=== PATIENT | female | born 1985 | race Caucasian/White ===

== ENCOUNTER 2017-05-23 07:35 | Emergency (ER) | payer OTHER, MEDICAID ==
[~2017-05-23] VITALS: Ht 177.8 cm; Wt 91.0 kg
[~2017-05-23 07:35] MED LIST: MOTRIN
[2017-05-23] MEDS ORDERED: KETOROLAC 60MG/2ML VIAL IM ONE (09:30)
[2017-05-23 10:42] VITALS: BP 112/71
== END 2017-05-23 11:05 | disposition home or self-care (01) ==
LOC: ER 07:58
DX: S20.211A Contusion of right front wall of thorax, initial encounter (principal); Z88.1 Allergy status to other antibiotic agents; W10.1XXA Fall (on)(from) sidewalk curb, initial encounter; Y93.K1 Activity, walking an animal; Y92.480 Sidewalk as the place of occurrence of the external cause; Y99.8 Other external cause status
CPT/HCPCS: 71010; 96372; 99283; J1885

== ENCOUNTER 2018-07-08 16:46 | Emergency (ER) | payer MEDICAID, OTHER | END 2018-07-08 17:53 | disposition left against medical advice (07) | LOC: ER 17:33 | DX: Z53.21 Procedure and treatment not carried out due to patient leaving prior to being seen by health care provider (principal) ==

== ENCOUNTER 2018-07-09 05:06 | Emergency (ER) | payer MEDICAID ==
[~2018-07-09] VITALS: Ht 162.6 cm; Wt 99.8 kg
[2018-07-09] MEDS ORDERED: TETANUS, DIPHTHERIA, PERTUSSIS VAC/PF 0.5ML (>7YR OLD) IM ONE (07:00)
[2018-07-09] MEDS ORDERED: BACITRACIN ZINC OINT UDPKT TOP ONE (07:00)
[2018-07-09 09:43] VITALS: BP 110/68
== END 2018-07-09 09:40 | disposition home or self-care (01) ==
LOC: ER 05:06
DX: S01.111A Laceration without foreign body of right eyelid and periocular area, initial encounter (principal); S09.8XXA Other specified injuries of head, initial encounter; F17.200 Nicotine dependence, unspecified, uncomplicated; W01.0XXA Fall on same level from slipping, tripping and stumbling without subsequent striking against object, initial encounter; Y93.89 Activity, other specified; Y92.89 Other specified places as the place of occurrence of the external cause; Y99.8 Other external cause status; Z88.1 Allergy status to other antibiotic agents
CPT/HCPCS: 12011; 70450; 70486; 81025; 90715; 99284; X7700; Z7610

== ENCOUNTER 2018-09-04 15:56 | Inpatient (IN) | payer OTHER, MEDICAID ==
[~2018-09-04] VITALS: Ht 177.8 cm; Wt 104.3 kg
[2018-09-04] MEDS ORDERED: FUROSEMIDE 40MG/4ML VIAL IVP ONE (16:45)
[2018-09-04 17:29] LABS: BASOPHILS % 0.6 % (0.0-2.0); EOSINOPHILS % 1.3 % (0.0-5.0); HEMATOCRIT. 44.4 % (36.0-48.0); HEMOGLOBIN. 14.7 g/dL (12.0-16.0); INR 1.6; LYMPHOCYTES % 51.4 % (20.0-50.0); MEAN CORPUSCULAR HEMOGLOBIN 29.8 pg (28.0-32.0); MEAN CORPUSCULAR VOLUME 90.4 fL (81.0-99.0); MONOCYTES % 6.3 % (2.0-8.0); NEUTROPHILS % 40.4 % (40.0-76.0); PLATELET 321 x1000/uL (130-400); PROTHROMBIN TIME 15.9 sec (9.1-11.1); RED BLOOD CELL COUNT 4.91 mill/uL (4.2-5.4); RED CELL DISTRIBUTION WIDTH 18.4 % (11.6-14.6)
[2018-09-04 17:32] LABS: CHLORIDE 105 mEq/L (98-107); HCG SCREEN NEGATIVE
[2018-09-04 17:40] LABS: ETHANOL BLOOD 105 mg/dL
[2018-09-04] MEDS ORDERED: MORPHINE SULFATE 4 MG/ML CPJ (NOT FOR IM USE) IV STA (18:11)
[2018-09-04] MEDS ORDERED: ONDANSETRON HCL 4MG/2ML INJ IV STA (18:11)
[2018-09-04 18:37] LABS: CLARITY URINE CLEAR (CLEAR); COLOR URINE YELLOW (YELLOW); KETONES URINE NEGATIVE (NEGATIVE); LEUKOCYTE ESTERASE URINE 2+ (NEGATIVE); NITRITE URINE NEGATIVE (NEGATIVE); OCCULT BLOOD URINE NEGATIVE (NEGATIVE); PH URINE 5.5 (4.5-8.0); PROTEIN URINE NEGATIVE (NEGATIVE); SPECIFIC GRAVITY URINE 1.008 (1.005-1.030)
[2018-09-04] MEDS ORDERED: CEFTRIAXONE 1 G PREMIX 50 ML IV ONE (20:15)
[2018-09-04 23:00] VITALS: BP 115/54
[2018-09-04] MEDS ORDERED: LORAZEPAM 2MG/ML CPJ IV PRN (23:45)
[2018-09-04] MEDS ORDERED: ONDANSETRON HCL 4MG/2ML INJ IV PRN (23:45)
[2018-09-04] MEDS ORDERED: POTASSIUM CHLORIDE 20MEQ TABLET SR PO NR (23:59)
[2018-09-05] VITALS: BP 115/54
[2018-09-05] MEDS ORDERED: FLUO40CA8 PO (00:53)
[2018-09-05 04:00] VITALS: BP 110/63
[2018-09-05] MEDS: PANTOPRAZOLE 40MG DR TABLET PO SCH (06:23)
[2018-09-05 07:32] LABS: BASOPHILS % 0.8 % (0.0-2.0); EOSINOPHILS % 1.1 % (0.0-5.0); HEMATOCRIT. 35.8 % (36.0-48.0); LYMPHOCYTES % 43.6 % (20.0-50.0); MEAN CORPUSCULAR HEMOGLOBIN 30.2 pg (28.0-32.0); MEAN CORPUSCULAR VOLUME 89.9 fL (81.0-99.0); MONOCYTES % 8.8 % (2.0-8.0); NEUTROPHILS % 45.7 % (40.0-76.0); PLATELET 217 x1000/uL (130-400); RED BLOOD CELL COUNT 3.98 mill/uL (4.2-5.4); RED CELL DISTRIBUTION WIDTH 18.1 % (11.6-14.6)
[2018-09-05 08:00] VITALS: BP 107/70
[2018-09-05] MEDS: FUROSEMIDE 40MG TABLET PO SCH (08:39)
[2018-09-05] MEDS: FLUOXETINE HCL 20MG CAPSULE PO SCH (08:39)
[2018-09-05] MEDS: THIAMINE HCL 100MG TABLET PO SCH (08:39)
[2018-09-05] MEDS: FOLIC ACID 1MG TABLET PO SCH (08:39)
[2018-09-05] MEDS: MULTIVITAMINS,THER W-MINERALS TABLET PO SCH (08:40)
[2018-09-05] MEDS: CHLORDIAZEPOXIDE 25MG CAPSULE PO SCH ×3 (08:47→21:30)
[2018-09-05] MEDS: SPIRONOLACTONE 50MG TABLET PO SCH (08:48)
[2018-09-05 08:54] LABS: CHLORIDE 103 mEq/L (98-107)
[2018-09-05] MEDS ORDERED: LIDOCAINE HCL 1% 20ML VIAL (Pyxis) INJ ONE (10:46)
[2018-09-05] MEDS ORDERED: SODIUM BICARBONATE 4% (2.4MEQ) 5ML VIAL IV ONE (10:46)
[2018-09-05 12:00] VITALS: BP 109/63
[2018-09-05] MEDS ORDERED: PNEUMOCOCCAL 23-VAL P-SAC VAC 0.5 ML IM ONE (12:00)
[2018-09-05] MEDS ORDERED: INFLUENZA VIRUS VACCINE(AFLURIA) 0.5ML SYR IM ONE (12:00)
[2018-09-05] MEDS: LEVOFLOXACIN 500MG PREMIX 100 ML IV SCH (13:19)
[2018-09-05] MEDS: HYDROCODONE/ACETAMINOPHEN 5/325MG TABLET PO PRN ×2 (15:18→21:37)
[2018-09-05 15:59] VITALS: BP 105/64
[2018-09-05 20:00] VITALS: BP 100/41
[2018-09-06] VITALS: BP 97/45
[2018-09-06 04:00] VITALS: BP 102/54
[2018-09-06] MEDS: CHLORDIAZEPOXIDE 25MG CAPSULE PO SCH (05:40)
[2018-09-06] MEDS: PANTOPRAZOLE 40MG DR TABLET PO SCH (06:10)
[2018-09-06 07:58] LABS: BASOPHILS % 0.5 % (0.0-2.0); EOSINOPHILS % 1.1 % (0.0-5.0); HEMATOCRIT. 32.4 % (36.0-48.0); HEMOGLOBIN. 10.8 g/dL (12.0-16.0); LYMPHOCYTES % 58.7 % (20.0-50.0); MEAN CORPUSCULAR VOLUME 90.6 fL (81.0-99.0); MEAN PLATELET VOLUME 9.1 fl (7.4-10.4); MONOCYTES % 6.6 % (2.0-8.0); NEUTROPHILS % 33.1 % (40.0-76.0); PLATELET 148 x1000/uL (130-400); RED BLOOD CELL COUNT 3.58 mill/uL (4.2-5.4)
[2018-09-06 08:00] VITALS: BP 103/68
[2018-09-06] MEDS: FOLIC ACID 1MG TABLET PO SCH (08:42)
[2018-09-06] MEDS: MULTIVITAMINS,THER W-MINERALS TABLET PO SCH (08:42)
[2018-09-06] MEDS: FUROSEMIDE 40MG TABLET PO SCH (08:42)
[2018-09-06] MEDS: SPIRONOLACTONE 50MG TABLET PO SCH (08:42)
[2018-09-06] MEDS: THIAMINE HCL 100MG TABLET PO SCH (08:44)
[2018-09-06] MEDS: FLUOXETINE HCL 20MG CAPSULE PO SCH (08:44)
[2018-09-06 09:30] LABS: CHLORIDE 103 mEq/L (98-107)
[2018-09-06] MEDS: LEVOFLOXACIN 500MG PREMIX 100 ML IV SCH (10:20)
[2018-09-06] MEDS: HYDROCODONE/ACETAMINOPHEN 5/325MG TABLET PO PRN (11:53)
[2018-09-06 12:00] VITALS: BP 100/56
[2018-09-06 12:40] VITALS: BP 100/56
== END 2018-09-06 15:00 | disposition home or self-care (01) | DRG 871 ==
LOC: ER 15:56 → 8WST 18:32 → ENRESERV 20:05
PROVIDERS: ADMIT Internal Medicine; ATTEND Internal Medicine
PROC: 0W9G3ZZ Drainage of Peritoneal Cavity, Percutaneous Approach (ICD-10-PCS; principal; 2018-09-05)
DX: A41.9 Sepsis, unspecified organism (principal); E43 Unspecified severe protein-calorie malnutrition; D68.9 Coagulation defect, unspecified; N39.0 Urinary tract infection, site not specified; E66.9 Obesity, unspecified; F10.10 Alcohol abuse, uncomplicated; F32.9 Major depressive disorder, single episode, unspecified; E87.70 Fluid overload, unspecified; K70.31 Alcoholic cirrhosis of liver with ascites; Y90.5 Blood alcohol level of 100-119 mg/100 ml; Z98.84 Bariatric surgery status; Z88.1 Allergy status to other antibiotic agents; Z68.33 Body mass index [BMI] 33.0-33.9, adult
CPT/HCPCS: 36415; 49083; 71045; 76700; 80048; 83036; 83605; 83880; 84484; 84703; 86850; 86900; 88108; 88312; 93005; 93970; 96365; 96375; 99285; G0482; J0696; J1940; J1956; J2270; J2405; J3490; J7040

== ENCOUNTER 2018-10-08 13:08 | Emergency (ER) | payer OTHER, MEDICAID ==
[~2018-10-08] VITALS: Ht 177.8 cm; Wt 105.0 kg
[~2018-10-08 13:08] MED LIST changes: +FLUO40CA8 PO
[2018-10-08 14:35] LABS: CHLORIDE 91 mEq/L (98-107)
[2018-10-08 14:41] LABS: BASOPHILS % 0.8 % (0.0-2.0); EOSINOPHILS % 0.1 % (0.0-5.0); HEMATOCRIT. 37.4 % (36.0-48.0); HEMOGLOBIN. 12.5 g/dL (12.0-16.0); LYMPHOCYTES % 20.1 % (20.0-50.0); MEAN CORPUSCULAR HEMOGLOBIN 30.6 pg (28.0-32.0); MEAN CORPUSCULAR VOLUME 91.9 fL (81.0-99.0); MEAN PLATELET VOLUME 8.5 fl (7.4-10.4); MONOCYTES % 8.6 % (2.0-8.0); NEUTROPHILS % 70.4 % (40.0-76.0); PLATELET 289 x1000/uL (130-400); RED BLOOD CELL COUNT 4.07 mill/uL (4.2-5.4); RED CELL DISTRIBUTION WIDTH 20.2 % (11.6-14.6)
[2018-10-08 14:46] LABS: INR 3.8; PARTIAL THROMBOPLASTIN TIME 42.4 sec (23.4-31.0); PROTHROMBIN TIME 37.6 sec (9.1-11.1)
[2018-10-08 14:53] LABS: CLARITY URINE CLOUDY (CLEAR); COLOR URINE DARK YELLOW (YELLOW); KETONES URINE NEGATIVE (NEGATIVE); LEUKOCYTE ESTERASE URINE TRACE (NEGATIVE); NITRITE URINE NEGATIVE (NEGATIVE); OCCULT BLOOD URINE NEGATIVE (NEGATIVE); PROTEIN URINE NEGATIVE (NEGATIVE); SPECIFIC GRAVITY URINE 1.015 (1.005-1.030)
[2018-10-08] MEDS ORDERED: SODIUM CHLORIDE 0.9% 1,000 ML IV ONE ×2 (15:00→15:30)
[2018-10-08] MEDS ORDERED: VANCOMYCIN 1 G PREMIX 200 ML IV SCH (15:30)
[2018-10-08] MEDS ORDERED: LIDOCAINE HCL/EPINEPHRINE 1%-EPI 1:100,000 30 ML VIAL INFIL ONE (15:30)
[2018-10-08] MEDS ORDERED: PIPERACILLIN/TAZOBACTAM 3.375GM/50ML PREMIX IV ONE (15:44)
[2018-10-08] MEDS ORDERED: LIDOCAINE HCL/EPINEPHRINE 1%-EPI 1:100,000 20 ML VIAL INFIL NR (15:45)
[2018-10-08] MEDS ORDERED: SODIUM CHLORIDE 0.9% 500 ML IV NR (19:00)
[2018-10-08 19:32] VITALS: BP 103/59
== END 2018-10-08 19:34 | disposition short-term general hospital (02) ==
LOC: ER 13:08 → CANBEDREQ 22:33
DX: A41.9 Sepsis, unspecified organism (principal); N39.0 Urinary tract infection, site not specified; R65.21 Severe sepsis with septic shock; R18.8 Other ascites; F32.9 Major depressive disorder, single episode, unspecified; K72.90 Hepatic failure, unspecified without coma; Z98.84 Bariatric surgery status; Z88.1 Allergy status to other antibiotic agents; Z79.899 Other long term (current) drug therapy
CPT/HCPCS: 36415; 49083; 71045; 80053; 81003; 81025; 83605; 84145; 84484; 85025; 85610; 85730; 87040; 87070; 87075; 87086; 87205; 89050; 93005; 96361; 96365; 96366; 96375; 99291; J2543; J3370; J3490; J7030

== ENCOUNTER 2018-11-14 13:58 | Inpatient (IN) | payer OTHER, MEDICAID ==
[2018-11-14] VITALS (13 sets, daily range): BP systolic 40–118; BP diastolic 23–101
[~2018-11-14] VITALS: Ht 177.8 cm; Wt 96.6 kg
[2018-11-14] MEDS ORDERED: SODIUM CHLORIDE 0.9% 1,000 ML IV ONE (14:36)
[2018-11-14] MEDS ORDERED: AZTREONAM 2 GM in DEXT 5% WATER 100 ML IV ONE (16:30)
[2018-11-14] MEDS ORDERED: LEVOFLOXACIN 750MG PREMIX 150 ML IV ONE (16:30)
[2018-11-14 16:54] LABS: HEMATOCRIT. 29.2 % (36.0-48.0); MEAN CORPUSCULAR HEMOGLOBIN 32.1 pg (28.0-32.0); MEAN CORPUSCULAR VOLUME 103.6 fL (81.0-99.0); MEAN PLATELET VOLUME 9.4 fl (7.4-10.4); PLATELET 254 x1000/uL (130-400); RED BLOOD CELL COUNT 2.82 mill/uL (4.2-5.4); RED CELL DISTRIBUTION WIDTH 22.2 % (11.6-14.6)
[2018-11-14 16:56] LABS: HCG SCREEN NEGATIVE
[2018-11-14 16:59] LABS: CHLORIDE 102 mEq/L (98-107)
[2018-11-14 17:04] LABS: ETHANOL BLOOD < 10 mg/dL
[2018-11-14 17:10] LABS: PROTHROMBIN TIME 39.5 sec (9.1-11.1)
[2018-11-14 17:27] LABS: CLARITY URINE TURBID (CLEAR); COLOR URINE DARK YELLOW (YELLOW); KETONES URINE TRACE (NEGATIVE); LEUKOCYTE ESTERASE URINE 3+ (NEGATIVE); NITRITE URINE NEGATIVE (NEGATIVE); OCCULT BLOOD URINE 2+ (NEGATIVE); PROTEIN URINE 2+ (NEGATIVE); SPECIFIC GRAVITY URINE 1.017 (1.005-1.030); UROBILINOGEN URINE 0.2 E.U./dL (0.2-1.0)
[2018-11-14 17:45] LABS: CANNABINOID URINE SCREEN NEGATIVE (NEGATIVE); METHADONE URINE SCREEN NEGATIVE (NEGATIVE); OPIATES URINE SCREEN NEGATIVE (NEGATIVE)
[2018-11-14] MEDS ORDERED: DEXTROSE 50% WATER 50ML SYRINGE IV ONE (17:45)
[2018-11-14] MEDS ORDERED: NOREPINEPHRINE 4 MG in DEXT 5% WATER 246 ML IV ONE (17:45)
[2018-11-14 17:46] LABS: PLATELET ESTIMATE NORMAL
[2018-11-14 17:46] LABS: *AMPHETAMINES SCREEN URINE NEGATIVE (NEGATIVE); *BARBITURATES SCREEN URINE NEGATIVE (NEGATIVE); *COCAINE SCREEN URINE NEGATIVE (NEGATIVE); PHENCYCLIDINE URINE SCREEN NEGATIVE (NEGATIVE)
[2018-11-14 17:53] LABS: *BENZODIAZEPINES SCREEN URINE PRESUMTIVE POSITIVE (NEGATIVE)
[2018-11-14] MEDS ORDERED: NOREPINEPHRINE 4MG/250ML PMX 250 ML IV NR (18:00)
[2018-11-14] MEDS ORDERED: IPRATROPIUM/ALBUTEROL 0.5-3(2.5)MG/3ML NEB HHN PRN (18:45)
[2018-11-14] MEDS ORDERED: SODIUM CHLORIDE 0.9% 1,000 ML IV SCH (18:45)
[2018-11-14] MEDS ORDERED: ONDANSETRON HCL 4MG/2ML INJ IV PRN (18:45)
[2018-11-14] MEDS ORDERED: LACTULOSE 20G/30ML UDC PO NR (20:30)
[2018-11-14] MEDS: MIDODRINE HCL 5MG TABLET PO SCH (20:30)
[2018-11-14] MEDS ORDERED: SODIUM BICARBONATE 8.4% 1 MEQ/ML 50ML SYR IV NR (20:30)
[2018-11-14] MEDS: RIFAXIMIN 550 MG TABLET PO SCH (21:00)
[2018-11-14] MEDS ORDERED: NOREPINEPHRINE 4 MG in DEXT 5% WATER 246 ML IV PRN (21:45)
[2018-11-14] MEDS ORDERED: VANCOMYCIN 2,000 MG in DEXT 5% WATER 500 ML IV NR (22:00)
[2018-11-14] MEDS ORDERED: SODIUM BICARBONATE 100 MEQ in SODIUM CHLORIDE 0.45% 1,000 ML IV SCH (22:00)
[2018-11-14 23:13] LABS: BG BASE EXCESS -17.4 mmol/L (-2.0-2.0); BG CARBOXYHEMOGLOBIN 0.3 % (0.5-1.5); BG DEOXYHEMOGLOBIN 5.9 % (0.0-5.0); BG FRACTION INSPIRED OXYGEN 28; BG HCO3 ACT 7.8 mmol/L (22.0-26.0); BG METHEMOGLOBIN 0.6 % (0.0-1.5); BG OXYHEMOGLOBIN 93.2 % (94.0-97.0); BG PCO2 17.8 mmHg (35.0-45.0); BG PH 7.257 (7.350-7.450); BG PO2 77.7 mmHg (75.0-100.0); BG SAMPLE SITE LEFT BRACHIAL; BG TOTAL HEMOGLOBIN 9.6 g/dL (12.0-18.0); BG VENT MODE NASAL CANNULA
[2018-11-14] MEDS ORDERED: NOREPINEPHRINE 16 MG in DEXT 5% WATER 484 ML IV PRN (23:30)
[2018-11-15] VITALS (75 sets, daily range): BP systolic 52–113; BP diastolic 27–77
[2018-11-15 05:29] LABS: CHLORIDE 100 mEq/L (98-107)
[2018-11-15] MEDS ORDERED: LACTULOSE 20G/30ML UDC PO SCH (06:00)
[2018-11-15] MEDS ORDERED: SODIUM BICARBONATE 8.4% 1 MEQ/ML 50ML SYR IV SCH ×2 (07:15→12:15)
[2018-11-15] MEDS ORDERED: INSULIN REGULAR (HUMULIN R) 300UNITS/3ML IV SCH (07:30)
[2018-11-15] MEDS ORDERED: DEXTROSE 50% WATER 50ML SYRINGE IV SCH (07:30)
[2018-11-15] MEDS ORDERED: CALCIUM CHLORIDE 1,000 MG in DEXT 5% WATER 90 ML IV SCH (09:00)
[2018-11-15] MEDS ORDERED: SODIUM POLYSTYRENE SULFONATE 15 G/60 ML BOT PO SCH (09:00)
[2018-11-15] MEDS ORDERED: ALBUMIN HUMAN 12.5GM/50ML (25%) IV SCH (09:30)
[2018-11-15 09:34] LABS: HEMATOCRIT. 29.5 % (36.0-48.0); HEMOGLOBIN. 8.9 g/dL (12.0-16.0); MEAN CORPUSCULAR HEMOGLOBIN 32.2 pg (28.0-32.0); MEAN CORPUSCULAR VOLUME 106.8 fL (81.0-99.0); MEAN PLATELET VOLUME 10.1 fl (7.4-10.4); PLATELET 321 x1000/uL (130-400); RED BLOOD CELL COUNT 2.76 mill/uL (4.2-5.4); RED CELL DISTRIBUTION WIDTH 23.2 % (11.6-14.6)
[2018-11-15 09:39] LABS: PHOSPHORUS 5.9 mg/dL (2.5-4.9)
[2018-11-15] MEDS: RIFAXIMIN 550 MG TABLET PO SCH (09:56)
[2018-11-15] MEDS: MIDODRINE HCL 5MG TABLET PO SCH ×3 (09:56→16:20)
[2018-11-15] MEDS ORDERED: PHENYLEPHRINE 10 MG in DEXT 5% WATER 249 ML IV PRN (10:15)
[2018-11-15 10:21] LABS: PLATELET ESTIMATE NORMAL
[2018-11-15] MEDS ORDERED: PHYTONADIONE 10MG/ML AMP SUBCUT SCH (10:30)
[2018-11-15 10:48] LABS: INR 3.2; PROTHROMBIN TIME 31.7 sec (9.1-11.1)
[2018-11-15] MEDS ORDERED: AZTREONAM 500 MG in DEXTROSE 5% WATER 50 ML IV SCH (11:00)
[2018-11-15] MEDS ORDERED: SODIUM BICARBONATE 8.4% 1 MEQ/ML 50ML SYR IV NR ×2 (11:45→16:00)
[2018-11-15] MEDS ORDERED: SODIUM BICARBONATE 8.4% 1 MEQ/ML 50ML SYR IV ONE (11:46)
[2018-11-15 12:01] LABS: BG BASE EXCESS -18.7 mmol/L (-2.0-2.0); BG CARBOXYHEMOGLOBIN 0.2 % (0.5-1.5); BG DEOXYHEMOGLOBIN 9.6 % (0.0-5.0); BG FRACTION INSPIRED OXYGEN 28; BG HCO3 ACT 6.9 mmol/L (22.0-26.0); BG METHEMOGLOBIN 0.1 % (0.0-1.5); BG OXYGEN SATURATION 90.4 % (92.0-98.5); BG OXYHEMOGLOBIN 90.1 % (94.0-97.0); BG PCO2 17.1 mmHg (35.0-45.0); BG PH 7.226 (7.350-7.450); BG PO2 67.6 mmHg (75.0-100.0); BG SAMPLE SITE LEFT RADIAL; BG TOTAL HEMOGLOBIN 9.8 g/dL (12.0-18.0); BG VENT MODE NASAL CANNULA
[2018-11-15] MEDS ORDERED: PROPOFOL 10MG/ML 100ML 100 ML IV PRN (12:30)
[2018-11-15] MEDS: NOREPINEPHRINE 32 MG in DEXT 5% WATER 468 ML IV PRN ×2 (12:32→21:49)
[2018-11-15] MEDS: SODIUM BICARBONATE 150 MEQ in DEXTROSE 5% WATER 1,000 ML IV SCH ×2 (12:33→16:18)
[2018-11-15] MEDS: LACTULOSE 300 ML in WATER FOR IRRIGATION,STERILE 700 ML IR SCH ×3 (12:43→23:30)
[2018-11-15 13:11] LABS: BG CARBOXYHEMOGLOBIN 0.3 % (0.5-1.5); BG DEOXYHEMOGLOBIN 6.4 % (0.0-5.0); BG FRACTION INSPIRED OXYGEN 100; BG HCO3 ACT 9.4 mmol/L (22.0-26.0); BG METHEMOGLOBIN 0.6 % (0.0-1.5); BG OXYGEN SATURATION 93.5 % (92.0-98.5); BG OXYHEMOGLOBIN 92.7 % (94.0-97.0); BG PCO2 39.2 mmHg (35.0-45.0); BG PH 6.996 (7.350-7.450); BG PO2 97.7 mmHg (75.0-100.0); BG SAMPLE SITE RIGHT BRACHIAL; BG TIDAL VOLUME(mL) 500 mL; BG TOTAL HEMOGLOBIN 10.2 g/dL (12.0-18.0); BG VENT MODE VENT - A/C; BG VENT RATE 14 set
[2018-11-15 13:26] LABS: HEPATITIS B SURFACE ANTIGEN NEGATIVE
[2018-11-15 14:26] LABS: D-DIMER 3.71 mg/L FEU (<0.50); INR 3.4; PROTHROMBIN TIME 33.6 sec (9.1-11.1)
[2018-11-15] MEDS ORDERED: VECURONIUM BROMIDE 10 MG/VIAL IV ONE (14:52)
[2018-11-15] MEDS ORDERED: SODIUM CHLORIDE 0.9% 10ML VIAL ONE (14:52)
[2018-11-15] MEDS ORDERED: ETOMIDATE 2MG/ML 10ML VIAL IV ONE (14:52)
[2018-11-15 15:35] LABS: BG BASE EXCESS -24.1 mmol/L (-2.0-2.0); BG CARBOXYHEMOGLOBIN 0.3 % (0.5-1.5); BG DEOXYHEMOGLOBIN 7.7 % (0.0-5.0); BG FRACTION INSPIRED OXYGEN 70; BG HCO3 ACT 7.1 mmol/L (22.0-26.0); BG METHEMOGLOBIN 0.6 % (0.0-1.5); BG OXYGEN SATURATION 92.2 % (92.0-98.5); BG OXYHEMOGLOBIN 91.4 % (94.0-97.0); BG PCO2 34.1 mmHg (35.0-45.0); BG PH 6.934 (7.350-7.450); BG PO2 92.4 mmHg (75.0-100.0); BG SAMPLE SITE RIGHT BRACHIAL; BG TIDAL VOLUME(mL) 500 mL; BG TOTAL HEMOGLOBIN 10.3 g/dL (12.0-18.0); BG VENT MODE VENT - A/C; BG VENT RATE 24 set
[2018-11-15] MEDS: VASOPRESSIN 10 UNIT in SODIUM CHLORIDE 0.9% 99.5 ML IV PRN ×2 (15:51→20:23)
[2018-11-15] MEDS ORDERED: *NO ASPIRIN X 24 HOURS XX SCH (16:00)
[2018-11-15] MEDS: NYSTATIN POWDER 15GM TOP SCH ×2 (16:17→22:00)
[2018-11-15] MEDS: PHENYLEPHRINE 40 MG in DEXT 5% WATER 246 ML IV PRN ×2 (17:28→21:51)
[2018-11-15] MEDS ORDERED: POLYVINYL ALCOHOL OPHTH DROPS 15ML BOTHEYE PRN (18:00)
[2018-11-15] MEDS ORDERED: SODIUM CHLORIDE 0.9% IV SCH (18:00)
[2018-11-15] MEDS ORDERED: AMIKACIN SULFATE IV SCH (18:00)
[2018-11-15] MEDS ORDERED: POLYVINYL ALCOHOL OPHTH DROPS 15ML BOTHEYE SCH (18:00)
[2018-11-15 18:37] LABS: BG BASE EXCESS -23.4 mmol/L (-2.0-2.0); BG CARBOXYHEMOGLOBIN 0.3 % (0.5-1.5); BG DEOXYHEMOGLOBIN 12.5 % (0.0-5.0); BG FRACTION INSPIRED OXYGEN 70; BG HCO3 ACT 6.5 mmol/L (22.0-26.0); BG METHEMOGLOBIN 0.3 % (0.0-1.5); BG OXYGEN SATURATION 87.4 % (92.0-98.5); BG OXYHEMOGLOBIN 86.9 % (94.0-97.0); BG PCO2 27.2 mmHg (35.0-45.0); BG PH 6.995 (7.350-7.450); BG PO2 71.9 mmHg (75.0-100.0); BG SAMPLE SITE LEFT BRACHIAL; BG TIDAL VOLUME(mL) 550 mL; BG TOTAL HEMOGLOBIN 9.8 g/dL (12.0-18.0); BG VENT MODE VENT - A/C; BG VENT RATE 30 set
[2018-11-15] MEDS ORDERED: LACTULOSE 20G/30ML UDC ONE (21:42)
[2018-11-16] MEDS: SODIUM BICARBONATE 150 MEQ in DEXTROSE 5% WATER 1,000 ML IV SCH ×2 (01:02→01:09)
[2018-11-16] MEDS: PHENYLEPHRINE 40 MG in DEXT 5% WATER 246 ML IV PRN (01:06)
[2018-11-16] MEDS: VASOPRESSIN 10 UNIT in SODIUM CHLORIDE 0.9% 99.5 ML IV PRN (01:14)
[2018-11-16 01:17] VITALS: BP 90/48
[2018-11-16] MEDS ORDERED: MICAFUNGIN 100 MG in SODIUM CHLORIDE 0.9% 100 ML IV SCH (08:00)
[2018-11-16] MEDS ORDERED: LEVOFLOXACIN 500MG PREMIX 100 ML IV SCH ×2 (09:00)
== END 2018-11-16 09:17 | disposition expired | DRG 871 ==
LOC: ER 13:58 → ENRESERV 15:27 → EDRESERV 15:27 → CANRESERV 15:27 → CVICU 17:58 → EDBEDREQSVC 18:04 → EDBEDREQ 18:04 → ENRESERV 19:40
PROVIDERS: ADMIT Internal Medicine; ATTEND Internal Medicine
PROC: 02HV33Z Insertion of Infusion Device into Superior Vena Cava, Percutaneous Approach (ICD-10-PCS; principal; 2018-11-14)
PROC: B548ZZA Ultrasonography of Superior Vena Cava, Guidance (ICD-10-PCS; 2018-11-14)
PROC: 0W9G3ZZ Drainage of Peritoneal Cavity, Percutaneous Approach (ICD-10-PCS; 2018-11-14)
PROC: B5181ZA Fluoroscopy of Superior Vena Cava using Low Osmolar Contrast, Guidance (ICD-10-PCS; 2018-11-14)
PROC: 0BH17EZ Insertion of Endotracheal Airway into Trachea, Via Natural or Artificial Opening (ICD-10-PCS; 2018-11-15)
PROC: 5A1935Z Respiratory Ventilation, Less than 24 Consecutive Hours (ICD-10-PCS; 2018-11-15)
DX: A41.9 Sepsis, unspecified organism (principal); D65 Disseminated intravascular coagulation [defibrination syndrome]; E43 Unspecified severe protein-calorie malnutrition; G93.41 Metabolic encephalopathy; J96.00 Acute respiratory failure, unspecified whether with hypoxia or hypercapnia; R65.21 Severe sepsis with septic shock; N17.0 Acute kidney failure with tubular necrosis; E87.1 Hypo-osmolality and hyponatremia; E87.2 Acidosis; J98.11 Atelectasis; N39.0 Urinary tract infection, site not specified; E66.9 Obesity, unspecified; E87.5 Hyperkalemia; F10.10 Alcohol abuse, uncomplicated; F32.9 Major depressive disorder, single episode, unspecified; K70.30 Alcoholic cirrhosis of liver without ascites; Z68.30 Body mass index [BMI] 30.0-30.9, adult; K72.90 Hepatic failure, unspecified without coma; Z88.1 Allergy status to other antibiotic agents; Z98.84 Bariatric surgery status; D64.9 Anemia, unspecified; N18.9 Chronic kidney disease, unspecified; Z66 Do not resuscitate; I46.9 Cardiac arrest, cause unspecified
CPT/HCPCS: 31500; 36415; 36569; 36600; 71045; 76700; 76937; 77001; 80048; 80305; 82140; 82375; 82805; 82962; 83605; 83735; 83880; 84100; 84134; 84145; 84484; 84703; 85362; 85379; 85384; 86803; 87106; 87340; 93005; 94003; 96365; 96366; 96368; 99291; A6261; C1725; J0278; J1815; J1956; J2248; J2370; J2704; J3370; J3430; J3490; J7030; J7050; J7060; J7070; P9047; A4315